=== PATIENT | male | born 1970 | race Hispanic/Latino ===

== ENCOUNTER 2017-12-19 12:04 | Emergency (ER) | payer OTHER ==
[~2017-12-19] VITALS: Ht 177.8 cm; Wt 89.8 kg
--- NOTE | 2017-12-19 12:04 | NUR ---
ARRIVAL ARRIVED VIA [facility], PT AWAKE, ALERT, ORIENTED X3, USED LANGUAGE LINE TO TRIAGE PT
[2017-12-19 12:09] VITALS: BP 154/104
--- NOTE | 2017-12-19 12:17 | ER.PDOC ---
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 Said he was having visual hallucinations. Thinks related to food that he ate. Had NV 1-2 days. None today. No pain. No fever. Severity/Quality: mild Associated Symptoms (vomiting): mild vomiting Allergies: Coded Allergies: No Known Allergies (Unverified , 12/19/17) Vital Signs First Vital Signs Date Time Temp Pulse Resp B/P (MAP) Pulse Ox O2 Delivery O2 Flow Rate FiO2 12/19/17 12:07 98.0 103 18 99 12/19/17 12:09 154/104 (121) Room Air Last Vital Signs Date Time Temp Pulse Resp B/P (MAP) Pulse Ox O2 Delivery O2 Flow Rate FiO2 12/20/17 00:45 98.0 101 16 174/98 (123) 99 Room Air Past Medical History Medical History: hypertension Surgical History: no surgical history Social History Smoking: non-smoker Alcohol Use: occassionally Drug Use: none Reviewed Nursing Reviewed: Vital Signs, Abn. Noted, Nursing Assessment Constitutional: no symptoms reported EENTM: no symptoms reported Respiratory: no symptoms reported Cardiovascular: no symptoms reported Gastrointestinal: nausea, vomiting Genitourinary: no symptoms reported Musculoskeletal: no symptoms reported Skin: no symptoms reported Psychiatric/Neurological: other (visual hallucinations) All Other Systems: Reviewed and Negative Physical Exam General Appearance: No Apparent Distress, WD/WN HEENT: PERRL/EOMI, Normal ENT Inspection, Pharynx Normal Neck: Non-Tender Respiratory: chest non-tender, lungs clear, normal breath sounds Cardiovascular: Normal Peripheral Pulses, Regular Rate, Rhythm, No Edema Gastrointestinal: Normal Bowel Sounds, No Organomegaly, No Pulsatile Mass, Non Tender Back: Normal Inspection Extremities: Normal Range of Motion, Non-Tender, No Pedal Edema Neurologic/Psychiatric: property investor II-XII NML as Tested, No Motor/Sensory Deficits, Alert, Normal Mood/Affect, Oriented x 3 Skin: Normal Color, Warm/Dry Lymphatic: No Adenopathy Results/Orders Results/Orders Laboratory Tests Test 12/19/17 12:14 12/19/17 12:24 12/19/17 16:30 Urine Collection Type VOID Urine Color YELLOW (YELLOW) Urine Appearance CLEAR (CLEAR) Urine Bilirubin NEGATIVE MG/DL (NEGATIVE) Urine Ketones 50 mg/dL (NEGATIVE) Urine Specific [place] 1.010 (1.005-1.035) Urine pH 6.5 (5.0-6.0) Urine Protein NEGATIVE (NEGATIVE) Urine Urobilinogen NORMAL (NEGATIVE) Urine Nitrate NEGATIVE (NEGATAIVE) Urine Leukocyte Esterase NEGATIVE (NEGATIVE) Urine Blood NEGATIVE (NEGATIVE) Urine Glucose NORMAL (NEGATIVE) White Blood Count 9.0 10^3/uL (4.5-11.0) Red Blood Count 4.86 10^6/uL (4.50-5.90) Hemoglobin 14.7 g/dL (13.9-16.3) Hematocrit 42.6 % (37.0-53.0) Mean Corpuscular Volume 87.7 fL (78-100) Mean Corpuscular Hemoglobin 30.2 pg (26-34) Mean Corpuscular Hemoglobin Concent 34.5 g/dL (33-37) Red Cell Distribution Width 12.0 % (11.5-14.5) Platelet Count 258 10^3/uL (150-400) Mean Platelet Volume 10.8 fL (7.8-11.0) Neutrophils (%) (Auto) 73.4 % (41.0-85.0) Lymphocytes (%) (Auto) 17.7 % (24.0-44.0) Monocytes (%) (Auto) 7.3 % (5.0-12.0) Neutrophils # (Auto) 6.6 10^3/uL (1.8-7.7) Lymphocytes # (Auto) 1.6 10^3/uL (1.0-4.8) Monocytes # (Auto) 0.7 10^3/uL (0.3-0.8) Absolute Immature Granulocyte (auto 0.01 10^3 u/L (0-2) Eosinophils % 0.7 % (0.0-5.0) Basophils % 0.8 % (0.0-0.2) Basophils # 0.1 10^3/uL (0.0-0.1) Eosinophil Count 0.1 10^3/uL (0.0-0.2) Sodium Level 139 mmol/L (132-145) Potassium Level 3.4 mmol/L (3.6-5.2) Chloride Level 99.0 mmol/L (96-109) Carbon Dioxide Level 29.8 mmol/L (20.0-32) Anion Gap 13.6 Blood Urea Nitrogen 9 mg/dL (7-18) Creatinine 1.21 mg/dL (0.59-1.40) Estimated GFR () 78.1 (>/=60) BUN/Creatinine Ratio 7.0 Glucose Level 92 mg/dL (70-110) Calcium Level 9.3 mg/dL (8.4-10.5) Total Bilirubin 0.9 mg/dL (0.2-1.0) Aspartate Amino Transf (AST/SGOT) 23 U/L (0-35) Alanine Aminotransferase (ALT/SGPT) 30 U/L (12-78) Alkaline Phosphatase 73 U/L (50-136) Total Protein 8.0 g/dL (6.4-8.2) Albumin 4.3 g/dL (3.4-5.0) Globulin 3.7 Percent Immature Gran (Cell Imm) 0.10 % (0.00-0.50) Urine Opiates (GC/MS) NEGATIVE (NEGATIVE) Urine Amphetamine Qualitative NEGATIVE (NEGATIVE) Urine Barbiturates, Qualitative NEGATIVE (NEGATIVE) Urine Phencyclidine (PCP) (TLC) NEGATIVE (NEGATIVE) Urine Benzodiazepines, Qualitative NEGATIVE (NEGATIVE) Ur Tetrahydrocannabinol (THC) Scrn NEGATIVE (NEGATIVE) Administered Medications Medications (Trade) Dose Ordered Sig/Abdirahman Route PRN Reason Start Time Stop Time Status Last Admin Dose Admin Sodium Chloride 1,000 ml @ 0 mls/hr Q0M ONCE IV 12/19/17 12:30 12/19/17 16:08 DC 12/19/17 12:40 Lorazepam (Ativan) 1 mg STAT STAT PO 12/19/17 23:37 12/19/17 23:38 DC 12/19/17 23:42 Progress Progress Patient alert appropriate. Explained lab results. Departure Time of Disposition: 14:48 Disposition: 01 HOME, SELF-CARE Impression: Primary Impression: Amphetamine abuse Additional Impression: Amphetamine delusional disorder Condition: Improved Patient Instructions: Amphetamine Abuse-Brief, Psychosis Duration or Time Spent with Pa: MARGARITO JOHNSON MD Dec 19, 2017 12:17
[2017-12-19 12:25] LABS: BASOPHIL # 0.1 10^3/uL (0.0-0.1); BASOPHIL % 0.8 % (0.0-0.2); EOSINOPHIL # 0.1 10^3/uL (0.0-0.2); EOSINOPHIL % 0.7 % (0.0-5.0); HEMOGLOBIN 14.7 g/dL (13.9-16.3); LYMPHOCYTES # 1.6 10^3/uL (1.0-4.8); LYMPHOCYTES % 17.7 % (24.0-44.0); MEAN CELL HGB 30.2 pg (26-34); MEAN CELL HGB CONCENTRATION 34.5 g/dL (33-37); MEAN CORP VOLUME 87.7 fL (78-100); MEAN PLATELET VOLUME 10.8 fL (7.8-11.0); MONOCYTES # 0.7 10^3/uL (0.3-0.8); MONOCYTES % 7.3 % (5.0-12.0); NEUTROPHIL # 6.6 10^3/uL (1.8-7.7); NEUTROPHILS % 73.4 % (41.0-85.0)
[2017-12-19] MEDS ORDERED: NS 1000ML 1,000 ML ONE (12:29)
[2017-12-19] MEDS ORDERED: NS 1000ML 1,000 ML IV ONE (12:30)
--- NOTE | 2017-12-19 12:30 | NUR ---
IV ESTABLISHED IV IN L AC, STARTED NS BOLUS PER ORDER.
[2017-12-19 12:40] LABS: CALCIUM 9.3 mg/dL (8.4-10.5); CARBON DIOXIDE 29.8 mmol/L (20.0-32)
--- NOTE | 2017-12-19 13:30 | NUR ---
STATUS LYING IN BED CALM AND STILL, TOOK PT A BLANKET, DENIES FURTHER NEEDS @ THIS TIME.
--- NOTE | 2017-12-19 14:00 | NUR ---
STATUS LYING IN BED WITH EYES CLOSED, CALM AND STILL WITH NO S/S OF PAIN OR DISCOMFORT, RESP EVEN AND UNLABORED, EQUAL CHEST RISE AND FALL. V/S STABLE
[2017-12-19 14:22] LABS: BILIRUBIN,URINE NEGATIVE (NEGATIVE); UROBILINOGEN,URINE NORMAL (NEGATIVE)
[2017-12-19 14:23] LABS: APPEARANCE,URINE CLEAR (CLEAR); UA COLOR YELLOW (YELLOW)
[2017-12-19 15:50] VITALS: BP 165/87
--- NOTE | 2017-12-19 16:29 | NUR ---
STATUS CALLED STATING THAT SHE WAS WORRIED ABOUT HIM, WENT BACK IN ROOM AND USED LANGUAGE LINE TO TALK WITH PT, ASKED PT IF HE WAS HALLUCINATING, PT STATED THAT HE JUST KEEPS SEEING THE DEVIL, ASKED PT IF HE WANTED TO KILL HIMSELF OR HURT ANYONE HE STATED I WANT TO LIVE AND I WOULD NEVER HURT ANYONE. I'M JUST TIRED, COULD YOU GIVE ME A TRANQUILIZER SO I CAN SLEEP PLEASE. ASKED PT IF HE HAD DONE ANY DRUGS AND HE DENIED DRUG USE, EXITED ROOM AND REPORTED TO DOCTOR.
--- NOTE | 2017-12-19 21:45 | NUR ---
UPDATE Patient on vamshi very tearful. Asked patient if he would like a drink of water, Patient stated that there wasn't any water left. I told patient that we had water and i would bring him some. Patient was satisfied
--- NOTE | 2017-12-19 22:00 | NUR ---
UPDATE Brought patient water. Patient on [place] still tearful. Patient sat up to drink water. Told patient that i would bring patient a sandwich. Patient stated that he would like that.
--- NOTE | 2017-12-19 22:34 | NUR ---
UPDATE Brought patient sandor and dr morin. Patient sitting up eating at this time
--- NOTE | 2017-12-19 23:30 | NUR ---
hallucinating patient walking around room talking to villarreal and fidgeting , edp notified new orders received
[2017-12-19] MEDS ORDERED: ATIVAN ONE (23:37)
[2017-12-19] MEDS ORDERED: ATIVAN PO STA (23:37)
--- NOTE | 2017-12-20 00:40 | NUR ---
family family called and updated ETA , approx 2 1/2 hours
[2017-12-20 00:45] VITALS: BP 174/98
--- NOTE | 2017-12-20 00:45 | NUR ---
resting patient resting on stretcher awake playing on phone , denies needs at this time
== END 2017-12-19 15:54 | disposition home or self-care (01) ==
LOC: ER 12:04
DX: F15.10 Other stimulant abuse, uncomplicated (principal); F22 Delusional disorders; R11.2 Nausea with vomiting, unspecified; I10 Essential (primary) hypertension
CPT/HCPCS: 36415; 80053; 80307; 80324 ×3; 81002; 85025; 96360; 99284; J7030